=== PATIENT | male | born 1995 | race Asian ===

== ENCOUNTER 2020-09-28 16:27 | Observation (INO) | payer OTHER ==
[~2020-09-28] VITALS: Ht 172.7 cm; Wt 134.7 kg
[2020-09-28 16:41] VITALS: Ht 172.7 cm; Wt 134.7 kg
--- NOTE | 2020-09-28 16:54 | NUR ---
PT BIB SELF WITH C/O R FOOT AND ANKLE PAIN X3 DAYS S/P BUMPING R BUTTOCK INTO END OF A TABLE. PT STATES "SINCE BUMPING TABLE I COULDN'T MOVE MY RIGHT LEG AND ITS BEEN NUMB AND UNABE TO MOVE" PT STATES [place] GET[place] [facility] [place] HE ROLLED HIS ANKLE AND FELL TO THE GROUND AND SINCE THE R FOOT HAS BECAME SWOLLEN." PT STATES HE IS ABLE TO AMBULATE BY LIMPING BUT NOT A STEADY GAIT. WILL CONTINUE TO MONITOR
--- NOTE | 2020-09-28 19:11 | NUR ---
REPORT GIVEN TO BERNARD POND TO ASSUME PT CARE.
--- NOTE | 2020-09-28 20:21 | NUR ---
PT A&O X4, RESP E/U, EQUAL CHEST RISE, AND NO DISTRESS. WILL CONTINUE TO MONITOR.
[2020-09-28 20:43] LABS: BASOPHIL % 0.3 % (0-2); PLATELET COUNT 204 x10^3mcL (130-400); RED CELL DISTRIBUTION WIDTH 14.4 % (11.5-14.5)
[2020-09-28 20:58] LABS: CARBON DIOXIDE 25.3 mmol/L (21-32); CHLORIDE SERUM 95 mmol/L (98-107); CREATININE SERUM 0.9 mg/dL (0.7-1.3); GFR1 > 60 mL/min; GLUCOSE SERUM 121 mg/dL (74-106); POTASSIUM SERUM 4.3 mmol/L (3.5-5.1); SODIUM SERUM 131 mmol/L (136-145)
[2020-09-28 21:03] LABS: ALBUMIN 2.8 g/dL (3.4-5.0); ALKALINE PHOSPHATASE 90 U/L (46-116); ALT/SGPT 159 U/L (16-63); AST/SGOT 343 U/L (15-37); BILIRUBIN TOTAL 0.8 mg/dL (0.20-1.00); TOTAL PROTEIN, SERUM 7.4 g/dL (6.4-8.2)
--- NOTE | 2020-09-28 21:36 | NUR ---
PT A&O X4, RESP E/U, EQUAL RISE AND FALL OF CHEST, AND NO DISTRESS NOTED. WILL CONTINUE TO MONTIOR. PT IN MIDDLE OF GETTING IV, WILL TAKE VS AFTER COMPLETION.
--- NOTE | 2020-09-28 21:46 | NUR ---
3 UNSUCCESSFUL IV ATTEMPTS. ACQUIRED SALTY CHURCHILL TO ATTEMPT IV ACCESS.
[2020-09-28] MEDS ORDERED: ELIQUIS5 MG PO (21:51)
[2020-09-28] MEDS ORDERED: TARGADOX50 MG (21:52)
[2020-09-28] MEDS ORDERED: WELLBUTRIN XL300 M1 PO (21:52)
--- NOTE | 2020-09-28 23:10 | NUR ---
RECEIVED PT FROM ED [facility], CAME IN DUE TO RIGHT BUTTOCK TO RLE PAIN, HAD A FALL. AAOX4. DENIES HEADACHE/DIZZINESS. ABLE TO FOLLOW COMMANDS. NO SOB NOTED, LUNG SOUNDS CTA. DENIES CHEST PAIN/PRESSURE. MD=917. DENIES ABDDOMINAL DISCOMFORT. C/O NUMBNESS ON THE RLE. W/ EDEMA ON RLE. STATED THAT HE HAS 5/10 DULL PAIN ON THE RLE. VOIDS. NO IV ACCESS AT THIS TIME, PT REFUSED IV INSERTIONS UPON ARRIVAL TO THE FLOOR. SIDE RAILS UPX2. CALL LIGHT ON REACH. ENDORSED TO PRIMARY NURSE ALDAIR FOR CONTINUITY OF CARE
[2020-09-28 23:23] VITALS: BP 150/98
--- NOTE | 2020-09-29 01:17 | NUR ---
PT REQUESTED FOR PAIN MEDS ,MEDICATED WITH NORCO ORDERED PRN.
--- NOTE | 2020-09-29 06:22 | NUR ---
NO CHANGES OF CONDITION NOTED, PT'S IN BED AWAKE DENY PAIN .
[2020-09-29 06:28] VITALS: BP 149/80
[2020-09-29 08:34] VITALS: BP 140/101
--- NOTE | 2020-09-29 09:36 | NUR ---
RECIEVED PT FROM DAY SHIFT NURSE. RR EVEN AND UNLABORED. NO ADN. BED LOCKED AND LOWERED. CALL LIGHT WITHIN REACH. WILL CONTINUE WITH PLAN OF CARE.
[2020-09-29 12:28] VITALS: BP 106/66
[2020-09-29] MEDS ORDERED: MELOXICAM15 M1 PO (12:59)
[2020-09-29 14:00] VITALS: BP 106/66
--- NOTE | 2020-09-29 14:42 | NUR ---
PT STRONGLY REQUEST TO TAKE ELIQUIS AT ONCE. TALKED TO PHARMACIST. PER PHARMACIST RECOMMANDS TO INSTRUCT THE PT NEXT DOSE TOOTIE BE TOMORROW MORNING IF TAKE RIGHT NOW. PT AGREE. ELIQUIS IS GIVEN TO PT.
--- NOTE | 2020-09-29 15:39 | NUR ---
PT REQUEST TO RECEIVE SOLU-METROL IM AND ROBAXIN IM BEFORE GO DISCHARGE. CALLED DR. EDUARDO AGUERO WILL ORDER SOLU METROL IM BUT NOT ROBAXIN IM. INFORM THE PT'S DR DECISION. PT AGREE. WAITING FOR ORDER.
--- NOTE | 2020-09-29 16:23 | NUR ---
PT C/O NAUSEA. BUT PT HAS NO IV ACCESS SINCE ADMIT. PT STATE NO ONE CAN START HIS IV. TRIED HIS IV X 2 UNABLE TO GET IV. UNABLE TO GIVE ZOFRAN IV. PAGE DR. GARCIA TO REQUEST FOR ZOFRAN SUBLIGUAL.
--- NOTE | 2020-09-29 17:45 | NUR ---
PT SIGNED THE DISCHARGE PAPER, ALL DISCHARGE INSTRUCTION GIVEN. PT LEAVE THE FOLLOW WITH WHEEL CHAIR WITH HIS NEW FRONT ROLL WALKER.
== END 2020-09-29 17:45 | disposition home or self-care (01) ==
LOC: ED 16:27 → MU 20:21
PROVIDERS: Specialist; ADMIT Internal Medicine; ATTEND Internal Medicine
DX: M25.551 Pain in right hip (principal); R20.0 Anesthesia of skin; D72.829 Elevated white blood cell count, unspecified; E87.1 Hypo-osmolality and hyponatremia; Z86.718 Personal history of other venous thrombosis and embolism; Z86.711 Personal history of pulmonary embolism
CPT/HCPCS: 97116-GP; G0378; J2800; J2930; J7030; Q0162